=== PATIENT | female | born 1985 | race Caucasian/White ===

== ENCOUNTER 2019-01-23 13:50 | Emergency (ER) | payer OTHER ==
[~2019-01-23] VITALS: Ht 170.2 cm; Wt 90.7 kg
[~2019-01-23 13:50] MED LIST: BACTRIM DS TAB1 EACH PO; FLOXIN OTI0.3 %/5 M1 OT; NOHOMEMEDICATIONS; NORCO 5-325 TA1 EACH PO; TRI-SPRINTEC1 EACH
[2019-01-23] MEDS ORDERED: BUTALB-APAP-CA1 EACH PO (15:16)
[2019-01-23] MEDS ORDERED: ZANAFLEX4 MG PO (15:16)
[2019-01-23] MEDS ORDERED: NABUMETONE 750750 M1 PO (15:16)
[2019-01-23 15:30] VITALS: BP 120/73
== END 2019-01-23 15:31 | disposition home or self-care (01) ==
LOC: M.ERS 13:50
DX: S16.1XXA Strain of muscle, fascia and tendon at neck level, initial encounter (principal); S39.012A Strain of muscle, fascia and tendon of lower back, initial encounter; S09.8XXA Other specified injuries of head, initial encounter; Z88.1 Allergy status to other antibiotic agents; Z88.8 Allergy status to other drugs, medicaments and biological substances; F17.210 Nicotine dependence, cigarettes, uncomplicated; V49.40XA Driver injured in collision with unspecified motor vehicles in traffic accident, initial encounter; Y92.89 Other specified places as the place of occurrence of the external cause; Y93.89 Activity, other specified; Y99.8 Other external cause status